=== PATIENT | male | born 1965 | race Caucasian/White ===

== ENCOUNTER 2021-03-19 10:57 | Day surgery (SDC) | payer OTHER ==
[~2021-03-19] VITALS: Ht 165.1 cm; Wt 66.9 kg
[~2021-03-19 10:57] MED LIST: MIDAZOLAM 1 MG/ML, 2ML ONE
[2021-03-19 11:14] VITALS: BP 125/86
[2021-03-19] MEDS ORDERED: CHLORHEXIDINE 15 ML UDC ONE (11:16)
[2021-03-19] MEDS ORDERED: CHLORHEXIDINE 15 ML UDC PO ONE (11:30)
[2021-03-19] MEDS ORDERED: LACTATED RINGERS 1,000 ML IV SCH (11:30)
[2021-03-19] MEDS ORDERED: PROPOFOL 50 ML ONE (11:30)
[2021-03-19] MEDS ORDERED: MULT-658 PO (11:34)
== END 2021-03-19 13:10 | disposition home or self-care (01) ==
LOC: OUT 10:57
PROVIDERS: ATTEND Internal Medicine
DX: Z09 Encounter for follow-up examination after completed treatment for conditions other than malignant neoplasm (principal); Z85.89 Personal history of malignant neoplasm of other organs and systems
CPT/HCPCS: 45331; 45341; 88305; J2250; J2704; J7120